=== PATIENT | female | born 1970 | race African-American/Black ===

== ENCOUNTER 2020-08-22 07:55 | Emergency (ER) | payer OTHER ==
[2020-08-22 08:22] VITALS: BP 129/78; PULSE 82; TEMP 98.5; BMI 27.7
[2020-08-22] MEDS ORDERED: KETOROLAC TROMETHAMINE 30 MG/1 ML VIAL IM ONE (08:32)
[2020-08-22] MEDS ORDERED: KETOROLAC TROMETHAMINE 30 MG/1 ML VIAL ONE (08:40)
== END 2020-08-22 09:15 | disposition home or self-care (01) ==
LOC: JER 07:55
PROC: 3E0233Z Introduction of Anti-inflammatory into Muscle, Percutaneous Approach (ICD-10-PCS; principal; 2020-08-22)
DX: S53.402A Unspecified sprain of left elbow, initial encounter (principal)
CPT/HCPCS: 73030-TC-LT-FY; 73070-TC-LT-FY; 73090-TC-LT-FY; 99285-25

== ENCOUNTER 2020-09-06 07:31 | Day surgery (SDC) | payer OTHER ==
[2020-09-06 08:16] VITALS: BMI 28.2
[2020-09-06] MEDS ORDERED: ONDANSETRON 4 MG/2 ML VIAL ONE ×2 (09:01→09:56)
[2020-09-06] MEDS ORDERED: PROPOFOL 20 ML ONE (09:01)
[2020-09-06] MEDS ORDERED: DEXAMETHASONE SOD PHOSPHATE 4 MG/1 ML VIAL ONE ×2 (09:01→10:41)
[2020-09-06] MEDS ORDERED: MIDAZOLAM HCL 2 MG/2 ML SINGLE DOSE VIAL ONE (09:01)
[2020-09-06] MEDS ORDERED: ceFAZolin SODIUM 1 GM VIAL ONE (09:02)
[2020-09-06] MEDS ORDERED: BUPIVACAINE HCL/PF 2.5 MG/ML - 30 ML VIAL IJ ONE (09:38)
[2020-09-06] MEDS ORDERED: KETOROLAC TROMETHAMINE 30 MG/1 ML VIAL ONE (10:41)
[2020-09-06] MEDS ORDERED: BUPIVACAINE HCL/PF 0.25% (2.5MG/ML) 10 ML VIAL IJ ONE ×2 (10:43→10:50)
[2020-09-06] MEDS ORDERED: ONDANSETRON 4 MG/2 ML VIAL IVPUSH PRN (11:27)
[2020-09-06] MEDS ORDERED: oxyCODONE HCL 5 MG TABLET PO PRN ×2 (11:27)
[2020-09-06] MEDS ORDERED: LACTATED RINGERS SOLUTION 1,000 ML IV SCH (11:30)
[2020-09-06 13:21] VITALS: TEMP 98.2
[2020-09-06 15:53] VITALS: BP 114/78; PULSE 62
== END 2020-09-06 14:00 | disposition home or self-care (01) ==
LOC: FASU 07:31
PROVIDERS: ATTEND Orthopaedic Surgery
PROC: 0SBC4ZZ Excision of Right Knee Joint, Percutaneous Endoscopic Approach (ICD-10-PCS; 2020-09-06)
PROC: 0SBC4ZZ Excision of Right Knee Joint, Percutaneous Endoscopic Approach (ICD-10-PCS; 2020-09-06)
PROC: 0SBC4ZZ Excision of Right Knee Joint, Percutaneous Endoscopic Approach (ICD-10-PCS; principal; 2020-09-06 10:38)
DX: S83.241A Other tear of medial meniscus, current injury, right knee, initial encounter (principal); S83.281A Other tear of lateral meniscus, current injury, right knee, initial encounter; S83.8X1A Sprain of other specified parts of right knee, initial encounter; M65.861 Other synovitis and tenosynovitis, right lower leg; X58.XXXA Exposure to other specified factors, initial encounter; Y92.9 Unspecified place or not applicable; Y93.9 Activity, unspecified
CPT/HCPCS: 84703; 88304-TC; 94760